=== PATIENT | male | born 2000 | race Caucasian/White ===

== ENCOUNTER 2025-05-24 12:08 | Emergency (ER) | payer SELFPAY ==
[2025-05-24 12:09] VITALS: BMI 23.8
[2025-05-24 12:10] VITALS: BP 117/76
--- NOTE | 2025-05-24 15:58 | ED.GENMED ---
History of Present Illness
General
Chief Complaint: Jaw Pain
Source: patient
Exam Limitations: none
Time Seen by Provider: 05/24/25 15:42
Nursing documentation reviewed up to this point in time: agreed with
History of Present Illness
History of Present Illness:
Patient is a 24-year-old male who presents to the emergency department with left sided neck pain. Patient states he initially noticed pain this morning as he was eating [employer] nugget. He reports pain in the left side of his jaw
extending down into his left neck. Pain is worse with opening his mouth, chewing, or swallowing. Patient also reports pain in his mouth in a similar location. However�he has not noticed any areas of swelling or obvious abscess. He denies any
dysphagia although does report some pain with swallowing. No sore throat.
Patient denies any current tooth pain. He denies any fevers, chills. No chest pain or shortness of breath.
Patient has a lengthy history of dental infections/dental pain however feels the symptoms are very different.
Review of Systems
Review of Systems
Allergies reviewed?: Yes
All Other Systems: ROS reviewed and negative except as documented in HPI and ROS
Phy Exam
Physical Exam
Physical Exam:
Vitals: Patient's vital signs are stable. Afebrile
General: Patient is well appearing, no acute distress
Skin: Warm and dry, no rashes or lesions
Head: Normocephalic, atraumatic. No tenderness at TMJ.
Eyes: Sclera nonicteric. EOMs intact. No nystagmus.
Throat: Poor dentition. Small nonbleeding wound to left posterior inner cheek. No evidence or dental/ oral abscess. Uvula midline without evidence of POWER LINEMAN. Protecting airway. No drooling or trismus
Neck: Mild tenderness to left submandibular space near angle of jaw. No palpable abnormality. No obvious swelling or overlying erythema.
Cardiac: Regular rate and rhythm, no murmurs.
Pulm: Normal respiratory effort, no wheezes, rales, rhonchi heard on exam
.
Abdomen: No abdominal tenderness.
Extremities: No evidence of cyanosis or edema
Neuro: AAOx3. Grossly intact.
Psychiatric: Normal affect.
Course
Orders/Labs/Results
Orders:
Orders
05/24/25 16:27
Complete Blood Count/With Diff Urgent
Comprehensive Metabolic Panel Urgent
05/24/25 18:29
Amoxicillin 875 mg/Clav 125 mg [Augmentin 875 mg/125 mg] 1 tablet PO NOW STA
Abnormal Lab Results
05/24/25
16:27
MPV 10.7 H fL
(7.4-10.4)
Absolute Monos (auto) 0.7 H 10^3/uL
(0.1-0.6)
Total Bilirubin 1.6 H mg/dl
(0.2-1.3)
05/24/25 16:27
05/24/25 16:27
Vital Signs
Initial and Last Documented VS:
Initial Vital Signs
Temp Pulse Resp BP Pulse Ox
98.2 F 90 20 117/76 98
05/24/25 12:10 05/24/25 12:10 05/24/25 12:10 05/24/25 12:10 05/24/25 12:10
Last Documented Vital Signs
Temp Pulse Resp BP Pulse Ox
98.2 F 79 16 110/71 99
05/24/25 12:10 05/24/25 16:00 05/24/25 16:00 05/24/25 16:00 05/24/25 16:00
MDM/Problems Addressed
Differential Diagnosis Includes:
Not limited to: TMJ pain, dental abscess, intraoral laceration, retropharyngeal abscess, neck abscess, POWER LINEMAN, parotitis, lymphadenopathy, etc
MDM/Problems Addressed:
24-year-old male presenting with left sided neck and mouth pain radiating into left neck. Symptoms first noticed earlier today while eating lunch. Pain worsened when opening jaw. No associated fever, chills, chest pain, or shortness of breath.
Vitals as above. Patient afebrile. On exam � patient in no apparent distress. He does have mild tenderness to left submandibular area just under angle of jaw, however no obvious swelling or erythema/warmth. Patient has overall poor dentition,
although no obvious abscess. There is a small laceration notice to the left inner cheek near area of pain. He has no tenderness at TMJ. No trismus or drooling. He has clear speech.
Unsure exacxt etiology of symptoms today. Symptoms possibly secondary to small laceration noted in mouth however given report of deeper pain in neck � unable to exclude possible abscess or deeper space infection especially giving patient history of
frequent dental infections.
Will plan to check basic labs and CT scan of neck for further evaluation. Patient declines any pain medication.
Update: labs reviewed without any clinically significant abnormalities. No leukocytosis. Unfortunately � patient requesting to leave prior to CT scan as he does not want to wait any longer.
While lack of fever and leukocytosis overall reassuring, discussed at length with patient inability to rule out deeper neck/oral infection/other acute process without imaging. Patient understand risk of possible missed diagnosis, worsening condition
and still would like to leave.
He states his symptoms actually feel somewhat improved however, will monitor very closely at home for any signs of infection or worsening. Given visible lesion/laceration in mouth � will start patient on course of Augmentin to treat possible
underlying infectious process. Advised saltwater soaks and dental clinic follow up. Very strict return precautions discussed. Patient comfort with plan.
Chronic conditions affecting care:
N/A
Acute Exacerbation and/or Progression of Chronic Illness:
N/A
*Pulse Oximetry
SaO2: 98
Oxygen Mode of Delivery: Room air
Patient hypoxic: no
*EKG
Interpreted by ED Provider?: NA
*Painting Instructor Interpretation
Rate: Painting Instructor- N/A
*Critical Care Note
Total Time (30-74mins, 75-104mins- exclusive of procedures): Not Applicable
ED Attending Note
-
Portions of this chart may have been created with voice recognition software.� Occasional wrong word or��sound alike� substitutions may have occurred due to the inherent limitations of voice recognition software.
Discharge Plan
Departure
Patient Disposition: Home (Routine Discharge)
Date of Disposition: 05/24/25
Time of Disposition: 18:30
Patient with high blood pressure during this ER visit?: No
Condition: Good
Covid-19: Not Applicable
Discharge Problem:
Oral pain
Instructions: Dental pain - ED discharge instructions
Prescriptions:
New
amoxicillin-pot clavulanate 875-125 mg tablet
1 tab PO BID Qty: 14 0RF
Referrals:
NONE,* [Family Provider, Internal Medicine]
Activity Restrictions/Additional Instructions:
RETURN TO THE EMERGENCY DEPARTMENT WITH ANY FEVER, CHILLS, DIFFICULTY BREATHING OR SWALLOWING, WORSENING PAIN IN MOUTH, PAIN, SWELLING, REDNESS OF NECK, WORSENING IN CURRENT SYMPTOMS OR ANY OTHER CONCERNS
- As discussed�your lab work showed no acute abnormalities other than a mildly elevated bilirubin. You left prior to your CT scan despite recommendation. As discussed�there is a possibility of missing a deeper space process/infection without the
CT scan.
- A prescription for antibiotics has been sent to your pharmacy to cover for possible infection. Please take this twice a day for the next week. You should continue with salt water soaks. Take Tylenol and/or Motrin as needed for pain.
- It is important stay well-hydrated
- Follow-up with primary care/free dental clinic for further evaluation/management
Monitor your symptoms closely and return to the emergency department with any acute worsening/new symptoms or any signs of infection
Interventions
Interventions:
*Risk Screen - Suicide Last Done: 05/24/25 12:10
*General Assessment Last Done: 05/24/25 12:10
*Neglect/Abuse Screening Last Done: 05/24/25 12:10
*ED- Fall Risk Assessment Last Done: 05/24/25 13:39
*Nursing Disposition Last Done: 05/24/25 18:37
ED-EENT Assessment Last Done: 05/24/25 13:39
ED- Cardiac Assessment Last Done: 05/24/25 13:39
Discharge Date and Time
Discharge Date/Time: 05/24/25 18:46
Print Language: [id number]
[2025-05-24 16:00] VITALS: BP 110/71
[2025-05-24 16:41] LABS: Hematocrit 42.1 % (39.0-52.0); Hemoglobin 15.0 g/dL (13.0-18.0); Mean Corp Hgb Conc. 35.6 g/dL (33.0-37.0); Mean Corpuscular Volume 86.4 fL (80.0-94.0); Nucleated Red Blood Cells % 0 % (-); Platelet Count 251 10^3/uL (130-400); Red Cell Dist. Width 12.4 % (11.5-14.5)
[2025-05-24 16:54] LABS: ALT (SGPT) 13 U/L (0-50); AST (SGOT) 20 U/L (17-59); Albumin 4.7 g/dl (3.5-5.0); Alkaline Phosphatase 107 U/L (38-126); Blood Urea Nitrogen 9 mg/dl (9-20); Calcium 9.2 mg/dl (8.4-10.2); Carbon Dioxide 26 mmol/L (22-30); Chloride 107 mmol/L (98-107); Estimated Creatinine Clearance > 125 ml/min; Glucose 92 mg/dl (70-99); Potassium 3.9 mmol/L (3.5-5.1); Sodium 139 mmol/L (135-145); Total Protein 7.3 g/dl (6.3-8.2); eGFR > 60.00
[2025-05-24] MEDS: AUGMENTIN 875 MG/125 MG 1 TABLET PO (18:36)
== END 2025-05-24 18:46 | disposition home or self-care (01) ==
LOC: EMR 12:08
PROVIDERS: Physician Assistant; EMERGENCY PHYSICIAN Emergency Medicine
DX: K13.79 Other lesions of oral mucosa (principal); M54.2 Cervicalgia; R68.84 Jaw pain
CPT/HCPCS: 99283; 80053; 85025